=== PATIENT | male | born 1960 | race Caucasian/White ===

== ENCOUNTER 2021-09-23 09:33 | Emergency (ER) | payer MEDICAID, SELFPAY ==
[2021-09-23 09:34] VITALS: BP 160/88; PULSE 88; RESP 16; TEMP 36.8; O2SAT 98; BMI 28.6
--- NOTE | 2021-09-23 09:36 | CT_ITS ---
PROCEDURE INFORMATION: Exam: CT Cervical Spine Without Contrast Exam date and time: 09/23/2021 9:36 AM Age: 61 years old Clinical indication: Injury or trauma; Blunt trauma; Injury date: 09/23/21; Patient HX: Patient had a fall and has a history and known diagnosis of bone cancer and lung cancer TECHNIQUE: Imaging protocol: Computed tomography images of the cervical spine without contrast. Radiation optimization: All CT scans at this facility use at least one of these dose optimization techniques: automated exposure control; mA and/or kV adjustment per patient size (includes targeted exams where dose is matched to clinical indication); or iterative reconstruction. COMPARISON: CT HEAD/BRAIN WO CON 09/23/2021 10:06 AM FINDINGS: Bones/joints: Marked compression deformity with vertebra plana T3 which is age indeterminate. Discs/Spinal canal/Neural foramina: Moderate to marked disc space narrowing C5-C7 with small anterior and posterior osteophytes. Mastoid air cells: Opacification of the visualized right mastoid air cells with fluid in the right middle ear. Lungs: Lung apices are normal. Soft tissues: Unremarkable. IMPRESSION: 1. Marked compression deformity with vertebra plana T3 which is age indeterminate. 2. No evidence of cervical spine fracture. Remainder of findings as described above.
--- NOTE | 2021-09-23 09:36 | XR_ITS ---
PROCEDURE INFORMATION: Exam: XR Chest Exam date and time: 09/23/2021 9:36 AM Age: 61 years old Clinical indication: Injury or trauma; Blunt trauma (contusions or hematomas); Injury date: 09/23/21; Patient HX: Patient had a fall and has a history and known diagnosis of bone cancer and lung cancer TECHNIQUE: Imaging protocol: XR of the chest. Views: 1 view. COMPARISON: CT CERVICAL SPINE WO CON 09/23/2021 10:10 AM FINDINGS: Tubes, catheters and devices: Chest port/Mediport has been placed via the right jugular approach with the tip in the superior vena cava. Lungs: See Diaphragm finding. Pleural spaces: Unremarkable. No pleural effusion. No pneumothorax. Heart/Mediastinum: Unremarkable. No cardiomegaly. Diaphragm: Possible eventration versus elevation right hemidiaphragm. No clearly visualized infiltrate. Soft tissue prominence overlies the right hemithorax inferiorly. Consider two-view chest. Bones/joints: Unremarkable. IMPRESSION: Possible eventration versus elevation right hemidiaphragm. No clearly visualized infiltrate. Soft tissue prominence overlies the right hemithorax inferiorly. Consider two-view chest.
--- NOTE | 2021-09-23 09:36 | XR_ITS ---
PROCEDURE INFORMATION: Exam: XR Pelvis Exam date and time: 09/23/2021 9:36 AM Age: 61 years old Clinical indication: Injury or trauma; Blunt trauma (contusions or hematomas); Bilateral; Pelvic region; Injury date: 09/23/21; Patient HX: Patient had a fall and has a history and known diagnosis of bone cancer and lung cancer TECHNIQUE: Imaging protocol: XR pelvis. Views: 1 or 2 view. COMPARISON: No relevant prior studies available. FINDINGS: Bones/joints: osseous structures of the pelvis are without an acute process. rami are intact. Sacroiliac joints without separation/diastases/fracture. Iliac bones are normal. Soft tissues: See Bones/joints finding. IMPRESSION: Normal pelvis.
--- NOTE | 2021-09-23 09:36 | CT_ITS ---
PROCEDURE INFORMATION: Exam: CT Head Without Contrast Exam date and time: 09/23/2021 9:36 AM Age: 61 years old Clinical indication: Injury or trauma; Blunt trauma (contusions or hematomas); Without loss of consciousness; Injury date: 09/23/21; Patient HX: Patient had a fall and has a history and known diagnosis of bone cancer and lung cancer TECHNIQUE: Imaging protocol: Computed tomography of the head without contrast. Radiation optimization: All CT scans at this facility use at least one of these dose optimization techniques: automated exposure control; mA and/or kV adjustment per patient size (includes targeted exams where dose is matched to clinical indication); or iterative reconstruction. COMPARISON: No relevant prior studies available. FINDINGS: Brain: Prominent sulci. Patchy hypodensity of the cerebral white matter which are nonspecific but likely secondary to microangiopathic changes. Cerebral ventricles: The ventricles are prominent secondary to diffuse volume loss/atrophy. Paranasal sinuses: Mild mucoperiosteal thickening of the paranasal sinuses. Mastoid air cells: Opacification of the right mastoid air cells with fluid in the right middle ear and partial opacification of the left mastoid air cells. Bones/joints: Unremarkable. No acute fracture. Soft tissues: Unremarkable. IMPRESSION: 1. Chronic age related changes but no evidence of acute intracranial pathology. 2. Opacification of the right mastoid air cells with fluid in the right middle ear and partial opacification of the left mastoid air cells.
--- NOTE | 2021-09-23 09:39 | [facility].EDGENADL ---
ED Disposition Clinical Impression: Hip pain Disposition: Home, Self-Care Condition on Discharge: Good - Critical Care Critical Care Time: No Attestation: On , the high probability of a clinically significant, sudden or life threatening deterioration of the following system(s) required my full and direct attention, intervention and personal management. The time I documented below is in addition to time spent performing reported procedures but includes the following listed in this critical care notation. Medical Decision Making - Medical Records Medical records reviewed: Yes: I reviewed the patient's medical records. - Faisal Inquiry Pt receiving controlled substance: No Faisal was queried for this patient: No Vital Signs: 09/23/21 09:34 Temperature 98.2 F Temperature Source Oral Pulse Rate [Radial] 88 Respiratory Rate 16 Blood Pressure [Right Arm] 160/88 H Blood Pressure Mean [Right Arm] 112 Blood Pressure Position [Right Arm] Sitting 02 Sat by Pulse Oximetry 98 Oxygen Delivery Method Room Air Orders (Tests/Meds): ED MEDICATIONS Discontinued Medications Generic Name Dose Route Start Last Admin Trade Name Freq PRN Reason Stop Dose Admin Hydrocodone Bitart/Acetaminophen 2 tab 09/23/21 09:38 09/23/21 09:48 Hydrocodone/Apap 5/325 Mg Tablet PO 09/23/21 09:39 2 tab ONCE ONE Administration Medical Decision Narrative: Patient is a 61-year-old male presented emergency department chief complaint of fall with left hip pain and loss of consciousness. Differential diagnosis in this patient includes subdural bleed, epidural bleed, hip fracture, hip dislocation among others. Given this plan to order CT head, CT C-spine, chest x-ray and pelvic x-ray to further assess for musculoskeletal injury. Pain was treated with [facility]. Was hemodynamically stable, mentating well on examination and on reassessment. Per report fall was mechanical, patient denies any syncopal, presyncopal symptoms. Patient CT head and CT C-spine showed no abnormalities. Patient chest x-ray and pelvic x-ray did not show any signs of fracture on my review. Patient pain was well controlled throughout the emergency department stay, given this patient was discharged back to his facility. General Adult HPI - General Chief complaint: Fall Stated complaint: fall Time Seen by Provider: 09/23/21 09:35 - History of Present Illness HPI narrative: Patient is 61-year-old male presenting to the emergency department with chief complaint of fall. Patient has past medical history of metastatic lung cancer to the bone, report patient fell over his wheelchair and falling onto the left side and hitting his head. Patient reports that he lost consciousness for a few minutes, at the longterm but does not believe he lost consciousness. He is currently complaining of head pain, pain in his left buttock and hip and a foot cramp. Report patient did not have any blood thinner use, he is denying numbness and tingling as well as neck pain. - Related Data Home Medications Medication Instructions Recorded Confirmed amlodipine 10 mg tablet 10 mg PO DAILY tab 09/20/21 dexamethasone 4 mg tablet 2 mg PO QAM tab 09/20/21 gabapentin 100 mg capsule 200 mg PO DAILY cap 09/20/21 gabapentin 300 mg capsule 300 mg PO QPM cap 09/20/21 ipratropium 0.5 mg-albuterol 3 mg 3 ml INHALATION TID ml 09/20/21 (2.5 mg base)/3 mL nebulization soln ipratropium bromide 0.02 % 2.5 ml INHALATION Q4H PRN ml 09/20/21 solution for inhalation lorazepam 1 mg tablet 1 mg PO Q6H tab 09/20/21 methadone 10 mg tablet 20 mg PO BID tab 09/20/21 naproxen 500 mg tablet 500 mg PO BID 09/20/21 ondansetron HCl 4 mg tablet 4 mg PO Q4H tab 09/20/21 ondansetron HCl 4 mg tablet 4 mg PO Q8H 09/20/21 oxycodone 15 mg tablet 15 mg PO Q6H PRN 09/20/21 pantoprazole 40 mg granules 40 mg PO DAILY 09/20/21 delayed-release for susp in packet sennosides 8.6 mg tabl
[2021-09-23 10:30] VITALS: BP 136/68; PULSE 78; RESP 16; O2SAT 98
[2021-09-23 11:30] VITALS: BP 139/68; PULSE 78; RESP 20; O2SAT 98
[2021-09-23 13:58] VITALS: BP 134/58; PULSE 88; RESP 16; TEMP 36.6; O2SAT 98
== END 2021-09-23 14:01 | disposition home or self-care (01) ==
PROVIDERS: Emergency Provider Emergency Medicine; PCP Emergency Medicine
DX: M25.552 Pain in left hip (principal); W05.0XXA Fall from non-moving wheelchair, initial encounter; Y92.129 Unspecified place in nursing home as the place of occurrence of the external cause; C34.90 Malignant neoplasm of unspecified part of unspecified bronchus or lung; F17.210 Nicotine dependence, cigarettes, uncomplicated
CPT/HCPCS: 70450; 71045; 72125; 72170; 99283